=== PATIENT | female | born 1985 | race Caucasian/White ===

== ENCOUNTER 2023-03-15 20:34 | Emergency (ER) | payer BC, SELFPAY ==
[2023-03-15] VITALS (10 sets, daily range): BP systolic 121–133; BP diastolic 74–93; PULSE 60–83; RESP 18; TEMP 36.5; O2SAT 96–100; BMI 33.5
--- NOTE | 2023-03-15 21:32 | ED_ITS ---
HPI - Headache General Time Seen by Provider: 21:32 Date Seen: 03/15/23 Chief Complaint: Headache/Migraine Stated Complaint: migraine, vomiting, pain on R side Time Seen by Provider: 03/15/23 21:31 Source: patient, family, RN notes reviewed and old records reviewed Mode of arrival: ambulatory Limitations: no limitations History of Present Illness HPI Narrative: 38-year-old female who comes in today with headache. Patient has a history of migraine. Patient with right-sided headache that started about 4:00 p.m.. She took ibuprofen for this with minimal improvement, did not take her Imitrex. She has nausea vomiting with this along with photophobia. Pain is around the right eye and above the right eye. Similar to her usual migraines. Related Data Previous Rx's Medication Instructions Recorded sumatriptan succinate 100 mg See Rx Instructions PO .COMPLEX 06/30/22 tablet (Imitrex) #10 tabs bupropion HCl 300 mg 24 hr tablet, 300 mg PO QAM #90 tabs 08/10/22 extended release (Wellbutrin XL) fluoxetine 40 mg capsule (Prozac) 40 mg PO QAM #90 caps 08/10/22 sennosides 8.6 mg-docusate sodium 2 tab-cap (2 x 8.6-50 mg) PO QHS 08/10/22 50 mg tablet (Senna-S) #60 tabs trazodone 50 mg tablet 50 mg PO QHS #90 tabs 08/10/22 clindamycin HCl 300 mg capsule 300 mg PO TID #9 caps 03/09/23 fluconazole 150 mg tablet 150 mg PO ONCE #1 tab 03/09/23 Allergies Allergy/AdvReac Type Severity Reaction Status Date / Time clavulanic acid Allergy Severe Hives Verified 03/09/23 13:15 [From Augmentin] Sulfa (Sulfonamide Allergy Intermediate Hives Verified 03/09/23 13:15 Antibiotics) amoxicillin [From Augmentin] Allergy Unknown Hives Verified 03/09/23 13:15 Gluten Meal AdvReac Unknown Unknown Uncoded 03/09/23 13:15 [facility] PFS Surgical History Status post repeat low transverse section (07/05/18) ?Z98.891 - History of uterine scar from previous surgery (ICD-10) Status post operation on paranasal sinus ?Z98.890 - Other specified postprocedural states (ICD-10) Status post nasal septoplasty ?Z98.890 - Other specified postprocedural states (ICD-10) 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[employer], nonsmoker Smoking Status: Former smoker Do you use any of these nicotine containing products: None Second hand tobacco smoke exposure: No How often do you have a drink containing alcohol: 2-3 times a week AUDIT-C Alcohol total score: 3 Non-prescribed substance use: denies use Little interest or pleasure in doing things: more than half the days (irritable) Feeling down, depressed, or hopeless: not at all service: No Exam Narrative: Exam Narrative: General: Well-developed and well-nourished, no acute distress Head: Atraumatic and normocephalic Eyes: Pupils are equal reactive, extraocular motions intact, conjunctiva clear ENT: External nose and ears are normal, posterior pharynx without erythema or exudate Neck: No midline cervical tenderness, full spontaneous range of motion the n aydee, trachea midline, no adenopathy Heart: Regular rate and rhythm no murmurs or thrills Lungs: Clear to auscultation bilaterally without wheezes or crackles Abdomen: Soft, nontender, nondistended with active bowel sounds Musculoskeletal: No tenderness, deformity, or edema Neurologic: Awake, alert, and oriented x3, no gross focal neurologic deficits, cranial nerves intact as tested Psych: Mood and affect are appropriate Skin: No rashes Const: Vital Signs, click to edit/add: Vital Signs - 24 hr 03/15/23 21:04 Temperature 97.7 F Pulse Rate [Right Pulse Oximeter] 83 Respiratory Rate 18 Blood Pressure [Ri ght Upper Arm] 122/85 Pulse Oximetry 99 Oxygen Delivery Me thod Room Air Course Course Hospital Course: Patient seen and examined, prior records are reviewed. Patient with history of migraines who comes in today with a headache similar to her prior migraines. On exam, no focal neurologic deficits, vital is stable. Patient will be given Toradol, Benadryl, Compazine, and fluids. If symptoms are improved anticipate discharge. Reevaluation(s) Time of Reevaluation #1: 23:24 Reevaluation #1: Headache improved, patient is stable for discharge. Vital Signs Vital signs: Initial Vital Signs Temperature 97.7 F 03/15/23 21:04 Temperature Source Temporal Artery Scan 03/15/23 21:04 Pulse Rate 83 03/15/23 21:04 Pulse Rhythm Regular 03/15/23 21:04 Respiratory Rate 18 03/15/23 21:04 Blood Pressure 122/85 03/15/23 21:04 Blood Pressure Mean 97 03/15/23 21:04 Blood Pressure Position Sitting 03/15/23 21:04 Pulse Oximetry 99 03/15/23 21:04 Oxygen Delivery Method Room Air 03/15/23 21:04 Vital Signs Temperature 97.7 F 03/15/23 21:04 Pulse Rate 83 03/15/23 21:04 Respiratory Rate 18 03/15/23 21:04 Blood Pressure 122/85 03/15/23 21:04 Pulse Oximetry 99 03/15/23 21:04 Oxygen Delivery Method Room Air 03/15/23 21:04 Temperature 97.7 F 03/15/23 21:04 Pulse Rate 83 03/15/23 21:04 Respiratory Rate 18 03/15/23 21:04 Blood Pressure 122/85 03/15/23 21:04 Pulse Oximetry 99 03/15/23 21:04 Oxygen Delivery Method Room Air 03/15/23 21:04 Discharge Plan Discharge Clinical Impression: Migraine headache Patient Disposition: Home, Self-Care Condition: Stable Instructions: Migraine Headache (ED) Activity Level: Activity as Tolerated Discharge Diet: Regular Prescriptions: No Action sumatriptan succinate [Imitrex] 100 mg tablet See Rx Instructions PO .COMPLEX Qty: 10 5RF Rx Instructions: take 1 tab at onset of headache; if no relief, may repeat 1 tab after at least 2 hrs; max = 2 tabs/24 hrs PO bupropion HCl [Wellbutrin XL] 300 mg tablet extended release 24 hr 300 mg PO QAM Qty: 90 1RF fluoxetine [Prozac] 40 mg capsule 40 mg PO QAM Qty: 90 1RF trazodone 50 mg tablet 50 mg PO QHS Qty: 90 1RF sennosides-docusate sodium [Senna-S] 8.6-50 mg tablet 2 tab-cap PO QHS Qty: 60 2RF clindamycin HCl 300 mg capsule 300 mg PO TID Qty: 9 0RF fluconazole 150 mg tablet 150 mg PO ONCE Qty: 1 0RF Rx Instructions: as a single dose Follow Up/Referrals: Lupillo Carreno MD [Primary Care Provider] - Stand Alone Forms: [employer] Info Instructions
[2023-03-15] MEDS: KETOROLAC 15 MG/ML inj IVP (21:56)
[2023-03-15] MEDS: 0.9 % SODIUM CHLORIDE 1000 ml 1,000 ML IV (21:56)
[2023-03-15] MEDS: diphenhydrAMINE 50 MG/ML inj 25 MG IVP (21:56)
[2023-03-15] MEDS: PROCHLORPERAZINE 5 MG/ML VIAL 10 MG IV (21:56)
== END 2023-03-15 23:35 | disposition home or self-care (01) ==
PROVIDERS: Emergency Provider Family Medicine; PCP Family Medicine
DX: G43.909 Migraine, unspecified, not intractable, without status migrainosus (principal)
CPT/HCPCS: 96361; 96374; 96375; 99284; J0780; J1200; J1885; J7030

== ENCOUNTER 2023-07-13 14:54 | Outpatient (CLI) | payer BC, SELFPAY ==
[2023-07-13 22:28] LABS: PCR FLU A Negative PCR FLU A (Negative); PCR FLU B Negative PCR FLU B (Negative); PCR RSV Negative PCR RSV (Negative)
[2023-07-13 23:29] LABS: SARS PCR* Negative SARS-CoV-2 (Negative)
== END 2023-07-13 14:55 | disposition home or self-care (01) ==
LOC: KYNREF 14:55
PROVIDERS: PCP Family Medicine; Visit Provider Nurse Practitioner Family
DX: J06.9 Acute upper respiratory infection, unspecified (principal); R09.89 Other specified symptoms and signs involving the circulatory and respiratory systems
CPT/HCPCS: 87631

== ENCOUNTER 2023-10-12 16:05 | Outpatient (CLI) | payer BC, SELFPAY | END 2023-10-12 16:06 | disposition home or self-care (01) | PROVIDERS: PCP Family Medicine; Visit Provider Obstetrics & Gynecology | DX: Z13.29 Encounter for screening for other suspected endocrine disorder (principal); Z11.3 Encounter for screening for infections with a predominantly sexual mode of transmission; Z13.21 Encounter for screening for nutritional disorder; Z13.220 Encounter for screening for lipoid disorders; Z13.228 Encounter for screening for other metabolic disorders | CPT/HCPCS: 80053; 80061; 82306; 84443; 87491; 87591 ==

== ENCOUNTER 2024-10-18 16:06 | Outpatient (CLI) | payer BC, SELFPAY | END 2024-10-18 16:07 | disposition home or self-care (01) | LOC: LKVREF 16:06 | PROVIDERS: PCP Family Medicine; Visit Provider Family Medicine | DX: Z13.29 Encounter for screening for other suspected endocrine disorder (principal) | CPT/HCPCS: 84439 ==

== ENCOUNTER 2025-06-06 13:51 | Outpatient (CLI) | payer BC, SELFPAY | END 2025-06-06 13:52 | disposition home or self-care (01) | PROVIDERS: PCP Family Medicine; Visit Provider Family Medicine | DX: E88.810 Metabolic syndrome (principal); R53.83 Other fatigue | CPT/HCPCS: 80048; 84443 ==

== ENCOUNTER 2025-06-19 18:19 | Outpatient (CLI) | payer BC, SELFPAY ==
--- NOTE | 2025-06-19 19:00 | CRLHL7_ITS ---
For Patients: As a result of the Century Cures Act, medical imaging exams and procedure reports are released immediately into your electronic medical record. You may view this report before your referring provider. If you have questions, please contact your health care provider. INDICATION: BILATERAL SCREENING MAMMOGRAM, ASYMPTOMATIC 40 Y/O FEMALE COMPARISON: BASELINE TECHNIQUE: Digital mammogram in CC and MLO projections including computer-aided detection (CAD) and tomosynthesis. BREAST COMPOSITION: The breasts are heterogeneously dense, which may obscure small masses. FINDINGS: No suspicious findings. ASSESSMENT: BI-RADS 1 Negative RECOMMENDATION: Annual screening mammogram. A lay language report of this examination will be provided to the patient. Dictated by: Lupillo Bauer MD @ 06/20/2025 09:27:30 (Electronically Signed)
== END 2025-06-19 18:20 | disposition home or self-care (01) ==
LOC: MAMMO 18:20
PROVIDERS: PCP Family Medicine; Visit Provider Family Medicine
DX: Z12.31 Encounter for screening mammogram for malignant neoplasm of breast (principal); R92.333 Mammographic heterogeneous density, bilateral breasts
CPT/HCPCS: 77063; 77067